=== PATIENT | female | born 1980 ===

== ENCOUNTER 2021-01-13 14:12 | Emergency (ER) | payer SELFPAY ==
[~2021-01-13] VITALS: Ht 160 cm; Wt 63.6 kg
[2021-01-13 14:13] VITALS: BP 107/71
== END 2021-01-13 14:45 | disposition left against medical advice (07) ==
LOC: EMS 14:12
DX: S50.862A Insect bite (nonvenomous) of left forearm, initial encounter (principal); L03.114 Cellulitis of left upper limb; W57.XXXA Bitten or stung by nonvenomous insect and other nonvenomous arthropods, initial encounter; Y92.89 Other specified places as the place of occurrence of the external cause; Y93.89 Activity, other specified; Y99.8 Other external cause status
CPT/HCPCS: 99283; Z7502